=== PATIENT | female | born 1965 | race Caucasian/White ===

== ENCOUNTER 2023-08-12 14:51 | Inpatient (IN) | payer MEDICAID ==
[~2023-08-12] VITALS: Ht 167.6 cm; Wt 88.0 kg
[2023-08-12 15:13] VITALS: BP 162/99; PULSE 83; RESP 18; TEMP 98; O2SAT 100
[2023-08-12] MEDS ORDERED: ONDANSETRON 4 MG/2 ML VIAL IVP ONE (16:15)
[2023-08-12] MEDS ORDERED: MORPHINE SULFATE 4 MG/ML SYR IVP ONE (16:15)
[2023-08-12 17:01] LABS: BASOPHILS % (AUTO) 1.1 % (0.0-2.0); EOSINOPHILS # (AUTO) 0.3 K/uL (0-0.4); EOSINOPHILS % (AUTO) 7.3 % (0.0-4.0); HEMATOCRIT 35.5 % (36-48); LYMPHOCYTES # (AUTO) 0.8 K/uL (2.5-16.5); LYMPHOCYTES % (AUTO) 21.5 % (20.5-51.1); MEAN CORPUSCULAR HEMOGLOBIN 35 pg (27-31); MEAN CORPUSCULAR HGB CONC 37 g/dL (33-37); MEAN CORPUSCULAR VOLUME 95.9 fL (80-94); MONOCYTES # (AUTO) 0.5 K/uL (0.8-1.0); MONOCYTES % (AUTO) 12.3 % (1.7-9.3); NEUTROPHILS # (AUTO) 2.1 K/uL (1.8-7.7); NEUTROPHILS % (AUTO) 57.8 % (42.2-75.2); PLATELET COUNT (AUTO) 59 K/uL (140-450); RED CELL DISTRIBUTION WIDTH 13.8 % (11.6-13.7); WHITE BLOOD COUNT (AUTO) 3.7 K/uL (4.8-10.8)
[2023-08-12 17:22] LABS: ANION GAP 9.5 (8-16); CALCIUM 8.3 mg/dL (8.5-10.1); CARBON DIOXIDE 27.9 mmol/L (21-32); CREATININE 0.7 mg/dL (0.6-1.3); POTASSIUM 4.4 mmol/L (3.5-5.1)
[2023-08-12 17:30] LABS: INR 1.31 (0.8-1.2); LACTIC ACID 1.3 mmol/L (0.4-2.0); PARTIAL THROMBOPLASTIN TIME 27.7 secs (22-35.6); PROTHROMBIN TIME 13.5 secs (10.8-13.4)
[2023-08-12 17:31] LABS: ALANINE AMINOTRANSFERASE 65 U/L (12-78); ALBUMIN 2.7 g/dL (3.4-5.0); ALKALINE PHOSPHATASE 130 U/L (50-136); ASPARTATE AMINOTRANSFERASE 58 U/L (15-37); BILIRUBIN,DIRECT 0.8 mg/dL (0.0-0.3); LIPASE 59 U/L (16-77); TOTAL PROTEIN, SERUM 7.2 g/dL (6.4-8.2)
[2023-08-12 18:41] LABS: APPEARANCE,URINE CLEAR (CLEAR); BILIRUBIN,URINE NEGATIVE (NEGATIVE); BLOOD, URINE NEGATIVE (NEGATIVE); COLOR,URINE YELLOW (YELLOW); LEUKOCYTE ESTERASE ,URINE NEGATIVE (NEGATIVE); NITRITE, URINE NEGATIVE (NEGATIVE); PROTEIN,URINE NEGATIVE (NEGATIVE); UGLUCOSE NEGATIVE (NEGATIVE)
[2023-08-12] MEDS: FUROSEMIDE 40 MG/4 ML VIAL IVP SCH (21:26)
[2023-08-12 22:35] VITALS: BP 152/85; PULSE 82; RESP 18; TEMP 97.9; O2SAT 98
[2023-08-13 00:09] VITALS: PULSE 82; RESP 18; O2SAT 95
[2023-08-13 04:00] VITALS: BP 142/79; PULSE 69; RESP 18; TEMP 98.2; O2SAT 69
[2023-08-13 07:22] LABS: BASOPHILS % (AUTO) 0.6 % (0.0-2.0); EOSINOPHILS # (AUTO) 0.2 K/uL (0-0.4); EOSINOPHILS % (AUTO) 4.4 % (0.0-4.0); HEMATOCRIT 31.3 % (36-48); HEMOGLOBIN 11.5 g/dL (12.0-16.0); LYMPHOCYTES # (AUTO) 0.8 K/uL (2.5-16.5); LYMPHOCYTES % (AUTO) 23.3 % (20.5-51.1); MEAN CORPUSCULAR HEMOGLOBIN 35 pg (27-31); MEAN CORPUSCULAR HGB CONC 37 g/dL (33-37); MEAN CORPUSCULAR VOLUME 95.5 fL (80-94); MONOCYTES # (AUTO) 0.4 K/uL (0.8-1.0); MONOCYTES % (AUTO) 12.7 % (1.7-9.3); PLATELET COUNT (AUTO) 52 K/uL (140-450); RED BLOOD CELL COUNT(AUTO) 3.28 MIL/uL (4.20-5.40); RED CELL DISTRIBUTION WIDTH 13.7 % (11.6-13.7); WHITE BLOOD COUNT (AUTO) 3.4 K/uL (4.8-10.8)
[2023-08-13 07:58] LABS: ALBUMIN 2.2 g/dL (3.4-5.0); ANION GAP 9.9 (8-16); CALCIUM 7.9 mg/dL (8.5-10.1); CARBON DIOXIDE 28.3 mmol/L (21-32); CREATININE 0.7 mg/dL (0.6-1.3); POTASSIUM 4.2 mmol/L (3.5-5.1); TOTAL BILIRUBIN 1.7 mg/dL (0.0-1.0); TOTAL PROTEIN, SERUM 6.2 g/dL (6.4-8.2)
[2023-08-13 08:00] VITALS: PULSE 84; RESP 18; O2SAT 97
[2023-08-13] MEDS: lisinopriL 10 MG TAB PO SCH (08:53)
[2023-08-13] MEDS: FUROSEMIDE 40 MG/4 ML VIAL IVP SCH ×2 (08:54→20:21)
[2023-08-13] MEDS: SPIRONOLACTONE 50 MG TAB PO SCH (08:55)
[2023-08-13 19:45] VITALS: BP 106/58; PULSE 76; RESP 18; TEMP 98.2; O2SAT 69
[2023-08-13 20:00] VITALS: PULSE 76; RESP 18; O2SAT 97; O2SAT 98
[2023-08-14 04:00] VITALS: BP 125/64; PULSE 64; RESP 18; TEMP 98.1; O2SAT 97
[2023-08-14 06:24] LABS: BASOPHILS % (AUTO) 1.3 % (0.0-2.0); EOSINOPHILS # (AUTO) 0.2 K/uL (0-0.4); EOSINOPHILS % (AUTO) 7.2 % (0.0-4.0); HEMATOCRIT 32.9 % (36-48); LYMPHOCYTES % (AUTO) 31.2 % (20.5-51.1); MEAN CORPUSCULAR HEMOGLOBIN 35 pg (27-31); MEAN CORPUSCULAR HGB CONC 37 g/dL (33-37); MONOCYTES # (AUTO) 0.4 K/uL (0.8-1.0); MONOCYTES % (AUTO) 11.6 % (1.7-9.3); NEUTROPHILS # (AUTO) 1.5 K/uL (1.8-7.7); NEUTROPHILS % (AUTO) 48.7 % (42.2-75.2); PLATELET COUNT (AUTO) 53 K/uL (140-450); RED BLOOD CELL COUNT(AUTO) 3.46 MIL/uL (4.20-5.40); RED CELL DISTRIBUTION WIDTH 13.7 % (11.6-13.7); WHITE BLOOD COUNT (AUTO) 3.1 K/uL (4.8-10.8)
[2023-08-14 06:52] LABS: ALBUMIN 2.1 g/dL (3.4-5.0); ANION GAP 8.3 (8-16); CALCIUM 7.8 mg/dL (8.5-10.1); CARBON DIOXIDE 30.6 mmol/L (21-32); CREATININE 0.7 mg/dL (0.6-1.3); POTASSIUM 3.9 mmol/L (3.5-5.1); TOTAL BILIRUBIN 1.4 mg/dL (0.0-1.0); TOTAL PROTEIN, SERUM 5.8 g/dL (6.4-8.2)
[2023-08-14] MEDS ORDERED: FURO40TA9 PO (07:43)
[2023-08-14] MEDS ORDERED: SPIR50TA PO (07:43)
[2023-08-14] MEDS ORDERED: LISI10TA30 PO (07:43)
[2023-08-14 08:00] VITALS: PULSE 71; RESP 18; O2SAT 97
[2023-08-14 09:06] LABS: ALPHA-1-ANTITRYPSIN 183 mg/dL (101-187); HEPATITIS A ANTIBODY IGM Negative (Negative); HEPATITIS B CORE AB TOTAL Negative (Negative); HEPATITIS B CORE, IGM Negative (Negative); HEPATITIS B SURFACE ANTIBODY Non Reactive (.); HEPATITIS B SURFACE ANTIGEN Negative (Negative); HEPATITIS C VIRUS ANTIBODY Non Reactive (Non Reactive)
[2023-08-14] MEDS: FUROSEMIDE 40 MG/4 ML VIAL IVP SCH (09:52)
[2023-08-14] MEDS: SPIRONOLACTONE 50 MG TAB PO SCH (09:53)
[2023-08-14] MEDS: lisinopriL 10 MG TAB PO SCH (09:53)
[2023-08-14] MEDS ORDERED: POLYETHYLENE GLYCOL 17 GM/PKT PO SCH (11:20)
[2023-08-14] MEDS ORDERED: SENNA 8.6 MG TAB PO SCH (11:20)
[2023-08-14 12:28] VITALS: BP 125/65; PULSE 71; RESP 18; TEMP 98
[2023-08-14 15:06] LABS: ANTI DOUBLE STRANDED DNA AB <1 IU/mL (0-9); ANTI-NUCLEAR ANTIBODY,DIRECT Negative (Negative)
[2023-08-14 18:51] LABS: FERRITIN 314 ng/mL (15-150); HEPATITIS A ANTIBODY TOTAL Positive (Negative)
[2023-08-14 22:55] LABS: PROTEIN, BODY FLUID 1.7 g/dL
[2023-08-18 06:07] LABS: ANTI-MITOCHONDRIAL ANTIBODY <20.0 Units (0.0-20.0)
[2023-08-19] MEDS ORDERED: FURO-570 PO (10:57)
[2023-08-19] MEDS ORDERED: LISI-486 PO (10:57)
[2023-08-19] MEDS ORDERED: SPIR50TA PO (10:57)
== END 2023-08-14 13:30 | disposition home or self-care (01) ==
LOC: MED 14:51 → MMU 18:54 → MTU 21:52
PROVIDERS: ADMIT Family Medicine; ATTEND Family Medicine
PROC: 0W9G3ZZ Drainage of Peritoneal Cavity, Percutaneous Approach (ICD-10-PCS; principal; 2023-08-13)
DX: K74.60 Unspecified cirrhosis of liver (principal); E43 Unspecified severe protein-calorie malnutrition; D61.818 Other pancytopenia; R18.8 Other ascites; K75.81 Nonalcoholic steatohepatitis (NASH); D64.9 Anemia, unspecified; E11.9 Type 2 diabetes mellitus without complications; I10 Essential (primary) hypertension; Z68.31 Body mass index [BMI] 31.0-31.9, adult
CPT/HCPCS: 36415; 49083; 71045; 80048; 80053; 80076; 81003; 82103; 82140; 82150; 82390; 82553; 82728; 82945; 83516; 83605; 83690; 83880; 84157; 84484; 85025; 85610; 85730; 86038; 86704; 86706; 86708; 86709; 86803; 87040; 87070; 87075; 87081; 87086; 87205; 87340; 96374; 96375; 99285; J1940; J2001; J2270; J2405; Q0092

== ENCOUNTER 2023-12-03 13:14 | Emergency (ER) | payer SELFPAY ==
[~2023-12-03] VITALS: Ht 167.6 cm; Wt 75.7 kg
[~2023-12-03 13:14] MED LIST: FURO-570 PO; LISI-486 PO; SPIR50TA PO
[2023-12-03 13:29] VITALS: BP 151/78; PULSE 77; RESP 18; TEMP 96.7; O2SAT 98
[2023-12-03 16:14] LABS: BASOPHILS % (AUTO) 0.8 % (0.0-2.0); EOSINOPHILS # (AUTO) 0.3 K/uL (0-0.4); EOSINOPHILS % (AUTO) 8.1 % (0.0-4.0); HEMATOCRIT 37.4 % (36-48); HEMOGLOBIN 13.4 g/dL (12.0-16.0); LYMPHOCYTES # (AUTO) 0.8 K/uL (2.5-16.5); LYMPHOCYTES % (AUTO) 22.8 % (20.5-51.1); MEAN CORPUSCULAR HEMOGLOBIN 35 pg (27-31); MEAN CORPUSCULAR HGB CONC 36 g/dL (33-37); MEAN CORPUSCULAR VOLUME 97.1 fL (80-94); MONOCYTES # (AUTO) 0.4 K/uL (0.8-1.0); NEUTROPHILS # (AUTO) 2.1 K/uL (1.8-7.7); NEUTROPHILS % (AUTO) 57.3 % (42.2-75.2); PLATELET COUNT (AUTO) 62 K/uL (140-450); RED BLOOD CELL COUNT(AUTO) 3.85 MIL/uL (4.20-5.40); RED CELL DISTRIBUTION WIDTH 13.1 % (11.6-13.7); WHITE BLOOD COUNT (AUTO) 3.7 K/uL (4.8-10.8)
[2023-12-03 16:24] LABS: ANION GAP 12.6 (8-16); CALCIUM 8.3 mg/dL (8.5-10.1); CARBON DIOXIDE 28.2 mmol/L (21-32); CREATININE 0.6 mg/dL (0.6-1.3); POTASSIUM 3.8 mmol/L (3.5-5.1)
[2023-12-03 16:31] LABS: ALANINE AMINOTRANSFERASE 74 U/L (12-78); ALBUMIN 3.1 g/dL (3.4-5.0); ALKALINE PHOSPHATASE 103 U/L (50-136); ASPARTATE AMINOTRANSFERASE 50 U/L (15-37); BILIRUBIN,DIRECT 0.6 mg/dL (0.0-0.3); TOTAL BILIRUBIN 1.6 mg/dL (0.0-1.0); TOTAL PROTEIN, SERUM 7.4 g/dL (6.4-8.2)
[2023-12-03 17:02] VITALS: BP 153/69; PULSE 88; RESP 21; TEMP 97.6; O2SAT 99
== END 2023-12-03 19:39 | disposition home or self-care (01) ==
LOC: MED 13:14
DX: J90 Pleural effusion, not elsewhere classified (principal); R06.02 Shortness of breath; E11.9 Type 2 diabetes mellitus without complications; I10 Essential (primary) hypertension; Z98.890 Other specified postprocedural states; Z79.899 Other long term (current) drug therapy
CPT/HCPCS: 36415; 71045; 80048; 80076; 83880; 84484; 85025; 93005; 99285

== ENCOUNTER 2023-12-06 09:06 | Inpatient (IN) | payer SELFPAY ==
[~2023-12-06] VITALS: Ht 167.6 cm; Wt 78.9 kg
[2023-12-06 09:21] VITALS: BP 142/79; PULSE 79; RESP 16; TEMP 98.3; O2SAT 96
[2023-12-06 10:30] LABS: BASOPHILS % (AUTO) 0.8 % (0.0-2.0); EOSINOPHILS # (AUTO) 0.3 K/uL (0-0.4); EOSINOPHILS % (AUTO) 8.3 % (0.0-4.0); HEMATOCRIT 38.9 % (36-48); LYMPHOCYTES # (AUTO) 0.8 K/uL (2.5-16.5); LYMPHOCYTES % (AUTO) 22.2 % (20.5-51.1); MEAN CORPUSCULAR HEMOGLOBIN 35 pg (27-31); MEAN CORPUSCULAR HGB CONC 36 g/dL (33-37); MEAN CORPUSCULAR VOLUME 97.7 fL (80-94); MONOCYTES # (AUTO) 0.3 K/uL (0.8-1.0); MONOCYTES % (AUTO) 8.6 % (1.7-9.3); NEUTROPHILS # (AUTO) 2.1 K/uL (1.8-7.7); NEUTROPHILS % (AUTO) 60.1 % (42.2-75.2); PLATELET COUNT (AUTO) 63 K/uL (140-450); RED BLOOD CELL COUNT(AUTO) 3.98 MIL/uL (4.20-5.40); RED CELL DISTRIBUTION WIDTH 13.3 % (11.6-13.7); WHITE BLOOD COUNT (AUTO) 3.5 K/uL (4.8-10.8)
[2023-12-06 10:40] LABS: INR 1.26 (0.8-1.2); PARTIAL THROMBOPLASTIN TIME 26.9 secs (22-35.6); PROTHROMBIN TIME 13.1 secs (10.8-13.4)
[2023-12-06 10:45] LABS: ALBUMIN 3.1 g/dL (3.4-5.0); BILIRUBIN,DIRECT 0.5 mg/dL (0.0-0.3); TOTAL BILIRUBIN 1.6 mg/dL (0.0-1.0); TOTAL PROTEIN, SERUM 7.4 g/dL (6.4-8.2)
[2023-12-06 10:55] LABS: ANION GAP 12.2 (8-16); CALCIUM 8.4 mg/dL (8.5-10.1); CREATININE 0.8 mg/dL (0.6-1.3); POTASSIUM 4.2 mmol/L (3.5-5.1)
[2023-12-06] MEDS ORDERED: MAG SULF 2000 MG/WATER PREMIX 50 ML IV PRN (13:00)
[2023-12-06] MEDS ORDERED: HYDROcodone/APAP 5/325 MG 1 TAB TAB PO PRN (13:00)
[2023-12-06] MEDS ORDERED: POLYETHYLENE GLYCOL 17 GM/PKT PO PRN (13:00)
[2023-12-06] MEDS ORDERED: ACETAMINOPHEN 325 MG TAB PO PRN (13:00)
[2023-12-06] MEDS ORDERED: ONDANSETRON 4 MG/2 ML VIAL IVP PRN (13:00)
[2023-12-06] MEDS ORDERED: MELATONIN 3 MG TAB PO PRN (13:00)
[2023-12-06] MEDS ORDERED: MORPHINE SULFATE 2 MG/ML SYR IVP PRN (13:00)
[2023-12-06] MEDS ORDERED: POTASSIUM CHLORIDE 10 MEQ TABER PO PRN (13:00)
[2023-12-06 15:00] VITALS: BP 141/77; PULSE 69; RESP 18; TEMP 97.6; O2SAT 97
[2023-12-06 15:49] VITALS: O2SAT 97
[2023-12-06 20:00] VITALS: RESP 18
[2023-12-06] MEDS: SPIRONOLACTONE 50 MG TAB PO SCH (21:05)
[2023-12-07] VITALS: BP 142/62; RESP 18; TEMP 97.6; O2SAT 97
[2023-12-07 04:00] VITALS: BP 120/66; PULSE 66; RESP 20; TEMP 97.6; O2SAT 96
[2023-12-07 07:27] LABS: BASOPHILS % (AUTO) 1.4 % (0.0-2.0); EOSINOPHILS # (AUTO) 0.3 K/uL (0-0.4); EOSINOPHILS % (AUTO) 11.3 % (0.0-4.0); HEMATOCRIT 37.7 % (36-48); HEMOGLOBIN 13.3 g/dL (12.0-16.0); LYMPHOCYTES # (AUTO) 0.9 K/uL (2.5-16.5); LYMPHOCYTES % (AUTO) 29.6 % (20.5-51.1); MEAN CORPUSCULAR HEMOGLOBIN 35 pg (27-31); MEAN CORPUSCULAR HGB CONC 35 g/dL (33-37); MEAN CORPUSCULAR VOLUME 97.6 fL (80-94); MONOCYTES # (AUTO) 0.3 K/uL (0.8-1.0); MONOCYTES % (AUTO) 11.5 % (1.7-9.3); NEUTROPHILS # (AUTO) 1.4 K/uL (1.8-7.7); NEUTROPHILS % (AUTO) 46.2 % (42.2-75.2); PLATELET COUNT (AUTO) 50 K/uL (140-450); RED BLOOD CELL COUNT(AUTO) 3.86 MIL/uL (4.20-5.40); RED CELL DISTRIBUTION WIDTH 12.8 % (11.6-13.7)
[2023-12-07 07:38] LABS: ALBUMIN 2.8 g/dL (3.4-5.0); ANION GAP 9.7 (8-16); CALCIUM 8.5 mg/dL (8.5-10.1); CARBON DIOXIDE 28.5 mmol/L (21-32); CREATININE 0.7 mg/dL (0.6-1.3); MAGNESIUM 1.9 mg/dL (1.8-2.4); PHOSPHORUS 4.5 mg/dL (2.5-4.9); POTASSIUM 4.2 mmol/L (3.5-5.1); TOTAL BILIRUBIN 1.8 mg/dL (0.0-1.0); TOTAL PROTEIN, SERUM 6.8 g/dL (6.4-8.2)
[2023-12-07 08:00] VITALS: BP 147/67; PULSE 68; RESP 18; TEMP 97.5; O2SAT 96
[2023-12-07] MEDS: lisinopriL 10 MG TAB PO SCH (09:00)
[2023-12-07] MEDS: FUROSEMIDE 40 MG TAB PO SCH (09:00)
[2023-12-07 19:40] VITALS: BP 103/53; PULSE 77; RESP 17; TEMP 97.9; O2SAT 97
[2023-12-07 19:50] LABS: GLUCOSE,BODY FLUID 129 mg/dL
[2023-12-07 20:00] VITALS: PULSE 77
[2023-12-07 20:46] LABS: PROTEIN, BODY FLUID 2.5 g/dL
[2023-12-07 21:49] LABS: APPEARANCE,SPUN,BODY FLUID CLEAR (CLEAR); APPEARANCE,UNSPUN,BODY FLUID CLEAR (CLEAR); COLOR,BODY FLUID YELLOW (LT YELLOW); POLYNUCLEAR, BODY FLUID 0 %; RBC, BODY FLUID 126 /cu. mm.; TOTAL VOLUME,BODY FLUID 1550 mL; WBC, BODY FLUID 36 /cu. mm.
[2023-12-07 22:14] LABS: SPECIMENTYPE,BODY FLUID THORACENTESIS
[2023-12-07 22:20] LABS: PH,PLEURAL FLUID 7.5
[2023-12-08 04:00] VITALS: BP 117/60; PULSE 63; RESP 16; TEMP 97.8; O2SAT 98
[2023-12-08 07:04] LABS: HEMOGLOBIN 13.2 g/dL (12.0-16.0); NEUTROPHILS # (AUTO) 1.4 K/uL (1.8-7.7); WHITE BLOOD COUNT (AUTO) 2.9 K/uL (4.8-10.8)
[2023-12-08 07:10] LABS: BASOPHILS % (AUTO) 1.4 % (0.0-2.0); EOSINOPHILS # (AUTO) 0.3 K/uL (0-0.4); HEMATOCRIT 36.3 % (36-48); LYMPHOCYTES # (AUTO) 0.9 K/uL (2.5-16.5); LYMPHOCYTES % (AUTO) 29.4 % (20.5-51.1); MEAN CORPUSCULAR HEMOGLOBIN 35 pg (27-31); MEAN CORPUSCULAR HGB CONC 36 g/dL (33-37); MEAN CORPUSCULAR VOLUME 96.3 fL (80-94); MONOCYTES # (AUTO) 0.3 K/uL (0.8-1.0); MONOCYTES % (AUTO) 9.8 % (1.7-9.3); NEUTROPHILS % (AUTO) 48.4 % (42.2-75.2); PLATELET COUNT (AUTO) 54 K/uL (140-450); RED BLOOD CELL COUNT(AUTO) 3.77 MIL/uL (4.20-5.40); RED CELL DISTRIBUTION WIDTH 13.1 % (11.6-13.7)
[2023-12-08 07:56] LABS: ALBUMIN 2.7 g/dL (3.4-5.0); ANION GAP 11.8 (8-16); CALCIUM 8.3 mg/dL (8.5-10.1); CARBON DIOXIDE 26.3 mmol/L (21-32); CREATININE 0.7 mg/dL (0.6-1.3); MAGNESIUM 1.9 mg/dL (1.8-2.4); PHOSPHORUS 4.3 mg/dL (2.5-4.9); POTASSIUM 4.1 mmol/L (3.5-5.1); TOTAL BILIRUBIN 1.6 mg/dL (0.0-1.0); TOTAL PROTEIN, SERUM 6.6 g/dL (6.4-8.2)
[2023-12-08 08:00] VITALS: BP 114/53; PULSE 69; RESP 18; TEMP 97.4; O2SAT 94
== END 2023-12-08 14:50 | disposition home or self-care (01) | DRG 433 ==
LOC: MED 09:06 → MMU 13:41 → MTU 14:43
PROVIDERS: ADMIT Family Medicine; ATTEND Family Medicine
PROC: 0W993ZZ Drainage of Right Pleural Cavity, Percutaneous Approach (ICD-10-PCS; principal; 2023-12-07)
DX: K74.60 Unspecified cirrhosis of liver (principal); J91.8 Pleural effusion in other conditions classified elsewhere; I10 Essential (primary) hypertension; E11.9 Type 2 diabetes mellitus without complications
CPT/HCPCS: 36415; 71045; 76604; 76705; 76942; 80048; 80053; 80076; 82945; 83036; 83735; 83880; 84100; 84157; 84484; 85025; 85610; 85730; 87070; 87075; 87081; 89051; 93005; 99285; J2001; Q0092